=== PATIENT | male | born 1995 | race Caucasian/White ===

== ENCOUNTER 2023-08-21 08:37 | Emergency (ER) | payer SELFPAY ==
--- NOTE | 2023-08-21 08:39 | ECG_ITS ---
[facility] Test Date: 2023-08-21 Pat Name: Ilan Rush Department: Room: Gender: Male [employer]: : 1995 Requested By: Cory Quinones Order Number: [id number] Mannie MD: Collette Delgado M.D. Measurements Intervals Dwight Rate: 78 P: 84 MA: 136 QRS: 69 QRSD: 93 T: 66 QT: 352 QTc: 401 Interpretive Statements SINUS RHYTHM POSSIBLE RIGHT ATRIAL ENLARGEMENT [0.25mV P-WAVE] POSSIBLE LEFT ATRIAL ENLARGEMENT [-0.1mV P-WAVE IN V1/V2] No previous ECG available for comparison Electronically Signed On 08-21-2023 12:56:18 CDT by Collette Delgado M.D. [id number]
--- NOTE | 2023-08-21 08:39 | XR_ITS ---
WS: [id number] EXAMINATION: XR chest 1V portable [id number] REASON FOR EXAM: dyspnea/cough COMPARISON: 02/15/2014 ORDER DATE: 08/21/2023 8:39 AM TECHNIQUE: A single, portable frontal chest x-ray was obtained. X-RAY FINDINGS: The lungs are clear. Pleural spaces are clear. No pleural effusions or pneumothorax. Cardiomediastinal silhouette is normal. No evidence for pulmonary edema. Soft tissue and osseous structures are unremarkable. No tubes or lines are present. IMPRESSION: Unremarkable frontal portable chest x-ray.
[2023-08-21 08:50] VITALS: BP 141/87; PULSE 81; RESP 18; TEMP 36.7; O2SAT 99
[2023-08-21 09:00] LABS: Basophils # 0.1 10^3/uL (0.0-0.1); Basophils % 0.5 %; Eosinophils # 0.2 10^3/uL (0.0-0.8); Eosinophils % 2.5 %; Hematocrit 52.9 % (37-53); Lymphocytes % 10.9 %; Mean Corpuscular HGB Conc 34.4 g/dL (30-55); Mean Corpuscular Hemoglobin 34.7 pg (27-33); Mean Corpuscular Volume 100.8 fl (82-101); Mean Platelet Volume 8.5 fL (7.4-10.4); Monocytes % 10.6 %; Neutrophils # 6.88 10^3/uL (1.8-7.7); Nucleated Red Blood Cells % 0 %; Platelet Count 204 10^3/cmm (157-399); Red Blood Count 5.25 10^6/uL (3.85-5.65); Red Cell Distribution Width 12.3 % (12.1-15.1); White Blood Count 9.18 10^3/uL (3.29-11.43)
--- NOTE | 2023-08-21 09:11 | ED_ITS ---
HPI - Chest Pain General: Chief Complaint: Chest Pain Stated Complaint: side pain and chest pain Time Seen by Provider: 08/21/23 08:38 Source: patient Mode of arrival: ambulatory History of Present Illness: 27-year-old male presents emergency room complaining of left-sided chest pain worsening takes a deep breath. He has had a dry nonproductive cough. A little bit of sinus congestion as well patient is an everyday smoker is no history of any arrhythmias DVTs no swelling in the legs he is not on any blood thinners not had any fever sweats chills. No dysuria urgency or frequency no abdominal pain. MD complaint: chest pain Onset (ago): hour(s) (12) Timing of current episode: episodic Onset: during rest Pain location: substernal Pain radiation: none Quality: sharp Exacerbating factors: inspiration Associated symptoms: Deny abdominal pain, diaphoresis, dyspnea, fever(s), leg edema, nausea, palpitations, sense of impending doom, syncope or vomiting Treatment prior to arrival: none Review of Systems Const: Denies: fever(s) or diaphoresis Card: Denies: palpitations or syncope Resp: Denies: dyspnea GI: Denies: abdominal pain, nausea or vomiting Physical Exam Const: GENERAL APPEARANCE: cooperative and comfortable ORIENTATION/CONSCIOUSNESS: Yes awake, Yes oriented to person, Yes oriented to place and Yes oriented to time HENMT: COMMON NORMALS: normocephalic, atraumatic and hearing grossly normal bilaterally HEAD & SCALP: normocephalic and atraumatic Resp: COMMON NORMALS: normal respiratory effort, No retractions, No use of accessory muscles and clear to auscultation bilaterally AUSCULTATION: clear to auscultation bilaterally Cardio: COMMON NORMALS: regular rate, regular rhythm and No murmurs present (Cardio) RATE: regular rate RHYTHM: regular rhythm GI: COMMON NORMALS: Soft to palpation and No hepatosplenomegaly present AUSCULTATION: Yes normoactive bowel sounds PALPATION: Yes Soft to palpation, No Tenderness to palpation present (GI), No Guarding due to palpation present (GI) and Yes No hepatosplenomegaly present Extremity: COMMON NORMALS: normal to inspection, capillary refill normal, no clubbing, cyanosis or edema, no calf tenderness and no pedal edema Neuro: SENSORIUM/ORIENTATION: Yes oriented to person, Yes oriented to place and Yes oriented to time Skin: COMMON NORMALS: no rashes or lesions noted GENERAL SKIN EXAM: no rashes or lesions noted Course Vital Signs: Vital signs: Vital Signs Temperature 98.1 F 08/21/23 08:50 Pulse Rate 82 08/21/23 10:56 Respiratory Rate 17 08/21/23 10:56 Blood Pressure 128/88 08/21/23 10:56 Pulse Oximetry 97 08/21/23 10:56 Oxygen Delivery Me thod Room Air 08/21/23 10:06 MDM - Chest Pain Medical Decision Making Pleuritic chest pain Labs and imaging unremarkable. No signs of pneumonia clinically patient does not appear to have a COVID infection. Suspect some other viral upper respiratory infection supportive cares follow-up as needed Medical Records I reviewed the patient's medical records. Lab Data I reviewed the patient's lab results. 08/21/23 08:54 08/21/23 08:54 Laboratory Results WBC 9.18 10^3/uL (3.29-11.43) 08/21/23 08:54 RBC 5.25 10^6/uL (3.85-5.65) 08/21/23 08:54 Hgb 18.20 g/dL (11.27-16.99) H 08/21/23 08:54 Hct 52.9 % (37-53) 08/21/23 08:54 MCV 100.8 fl (82-101) 08/21/23 08:54 MCH 34.7 pg (27-33) H 08/21/23 08:54 MCHC 34.4 g/dL (30-55) 08/21/23 08:54 RDW 12.3 % (12.1-15.1) 08/21/23 08:54 Plt Count 204 10^3/cmm (157-399) 08/21/23 08:54 MPV 8.5 fL (7.4-10.4) 08/21/23 08:54 Neut % (Auto) 75.0 % 08/21/23 08:54 Lymph % (Auto) 10.9 % 08/21/23 08:54 Mcdonough % (Auto) 10.6 % 08/21/23 08:54 Eos % (Auto) 2.5 % 08/21/23 08:54 Baso % (Auto) 0.5 % 08/21/23 08:54 Neut # (Auto) 6.88 10^3/uL (1.8-7.7) 08/21/23 08:54 Lymph # (Auto) 1.0 10^3/uL (0.8-4.8) 08/21/23 08:54 Mcdonough # (Auto) 1.0 10^3/uL (0.2-0.9) H 08/21/23 08:54 Eos # (Auto) 0.2 10^3/uL (0.0-0.8) 08/21/23 08:54 Baso # (Auto) 0.1 10^3/uL (0.0-0.1) 08/21/23 08:54 Nucleated RBC % (auto) 0 % 08/21/23 08:54 Nucleated RBCs # 0.0 /100WBC 08/21/23 08:54 Sodium 136 mmol/L (136-145) 08/21/23 08:54 Potassium 4.3 mmol/L (3.5-5.1) 08/21/23 08:54 Chloride 100 mmol/L (98-107) 08/21/23 08:54 Carbon Dioxide 23 mmol/L (22-29) 08/21/23 08:54 Anion Gap 17.3 (5-19) 08/21/23 08:54 BUN 11 mg/dL (6-20) 08/21/23 08:54 Creatinine 0.9 mg/dL (0.7-1.2) 08/21/23 08:54 GFR Calculation 102.0 mL/min (90-130) 08/21/23 08:54 Glucose 112 mg/dL (65-115) 08/21/23 08:54 Calculated Osmolality 282 mOsm/kg (285-295) L 08/21/23 08:54 Calcium 9.9 mg/dL (8.5-10.5) 08/21/23 08:54 Total Bilirubin 0.8 mg/dL (0.15-1.2) 08/21/23 08:54 AST 35 U/L (0-40) 08/21/23 08:54 ALT 27 U/L (0-41) 08/21/23 08:54 Alkaline Phosphatase 121 U/L (40-130) 08/21/23 08:54 Total Protein 8.1 g/dL (6.6-8.7) 08/21/23 08:54 Albumin 4.8 g/dL (3.5-5.2) 08/21/23 08:54 Globulin 3.3 g/dL (1.3-4.6) 08/21/23 08:54 All radiology interpretation(s) finalized by discharge Discharge Plan Discharge Patient Disposition: Home Clinical Impression: Pleuritic chest pain Condition: Stable Prescriptions: New diclofenac sodium 75 mg tablet,delayed release (DR/EC) 75 mg PO Q12H PRN (Reason: pain) Qty: 20 0RF Discharge Orders: Discharge ED (Routine); Ordered 08/21/23 Ordered By: Cory Zarco Discharge Diet: Usual diet Discharge Activity: Increase activity as tolerated Patient Instructions: Pleurisy (ED), Opioid Safety, Pain Management Coding Level of Care Code 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
[2023-08-21 09:12] VITALS: BP 143/96; RESP 19; O2SAT 99
[2023-08-21 09:18] LABS: Alanine Aminotransferase 27 U/L (0-41); Albumin Level 4.8 g/dL (3.5-5.2); Alkaline Phosphatase 121 U/L (40-130); Anion Gap 17.3 (5-19); Aspartate Amino Transferase 35 U/L (0-40); Blood Urea Nitrogen 11 mg/dL (6-20); Calcium 9.9 mg/dL (8.5-10.5); Carbon Dioxide 23 mmol/L (22-29); Chloride 100 mmol/L (98-107); Globulin 3.3 g/dL (1.3-4.6); Glucose 112 mg/dL (65-115); Osmolality Calculated 282 mOsm/kg (285-295); Potassium 4.3 mmol/L (3.5-5.1); Sodium 136 mmol/L (136-145); Total Bilirubin 0.8 mg/dL (0.15-1.2); Total Protein 8.1 g/dL (6.6-8.7)
--- NOTE | 2023-08-21 09:20 | PC.PHAR ---
pt states he take no rx or otc medications-no meds show up on ext med history
[2023-08-21] MEDS: ketorolac 30 mg/mL INJ IVP (09:26)
[2023-08-21 10:06] VITALS: BP 142/85; PULSE 75; RESP 20; O2SAT 97
[2023-08-21 10:56] VITALS: BP 128/88; PULSE 82; RESP 17; O2SAT 97
== END 2023-08-21 10:57 | disposition home or self-care (01) ==
PROVIDERS: Emergency Provider Family Medicine
DX: R09.1 Pleurisy (principal)
CPT/HCPCS: 36415; 71045; 80053; 85025; 93005; 96374; 99285; J1885

== ENCOUNTER → 2024-03-06 18:55 | Outpatient (BNVA) | payer SELFPAY | PROVIDERS: Visit Provider Physician Assistant | DX: R09.81 Nasal congestion (principal) | CPT/HCPCS: 87400 ==

== ENCOUNTER 2024-09-29 07:50 | Emergency (ER) | payer SELFPAY ==
--- NOTE | 2024-09-29 07:52 | ED_ITS ---
HPI - Extremity Injury (Lower) General: Chief Complaint: Extremity Injury, Lower Stated Complaint: L foot injury Time Seen by Provider: 09/29/24 07:52 Source: patient Mode of arrival: ambulatory Limitations: no limitations History of Present Illness: Patient is a 28-year-old male presents to ED today with a complaint of a left foot injury that he sustained after falling from his roof approximately 9 days ago. He does not remember twisting the extremity and feels like he landed fairly flat-footed . He has had pain since the fall. He is ambulatory here without assistance but with a limp. He has noticed bruising to the medial aspect of his left foot. He has no other injuries or complaints at this time. complaint: foot injury Onset (ago): day(s) Injury: Left: foot Place: home Severity: moderate Relieving factors: immobilization Exacerbating factors: weight bearing, movement and palpation Context: fall Associated symptoms: Reports no associated symptoms Other symptoms: none Related Data Home Medications Medication Instructions Recorded Confirmed No Known Home Medications 09/29/24 09/29/24 Allergies Allergy/AdvReac Type Severity Reaction Status Date / Time No Known Allergies Allergy Verified 03/06/24 18:26 Review of Systems Musc: Reports: extremity pain (L foot); Denies: neck pain, back pain, extremity swelling, joint pain or joint swelling Neuro: Denies: numbness in extremities, weakness in extremities, sensory changes or difficulty walking Physical Exam Const: COMMON NORMALS: no acute distress, average body habitus, no limitations, alert and well nourished Back/Pelvis: COMMON NORMALS: thoracic and lumbar spine normal to inspection Extremity: COMMON NORMALS: capillary refill normal, no joint enlargement, no clubbing, cyanosis or edema, no calf tenderness and no pedal edema GENERAL: Yes normal exam except as noted LEFT LOWER EXTREMITY: Yes ankle joint (normal ankle joint examination) Left ankle: Yes neurovascular exam (normal) and Yes foot & digits Left foot and digits: Yes inspection (ecchymosis medial L foot), Yes palpation (TTP proximal/medial L foot; no obvious bony abnormalities noted) and Yes neurovascular exam (normal) Neuro: SENSORIUM/ORIENTATION: Yes alert Course Vital Signs: Vital signs: Vital Signs Temperature 98.1 F 09/29/24 08:02 Pulse Rate 67 09/29/24 08:02 Respiratory Rate 18 09/29/24 08:02 Blood Pressure 135/66 09/29/24 08:02 Pulse Oximetry 100 09/29/24 08:02 Oxygen Delivery Me thod Room Air 09/29/24 08:02 MDM - Extremity Injury (Lower) Medical Decision Making XR unremarkable. Radiology did comment on a possible equivocal nondisplaced fracture at the base of his fifth proximal phalanx. Patient has absolutely no tenderness here. He was offered crutches but declines. Recommend continuing conservative therapy. Recommend following up with primary care in 1 to 2 weeks if symptoms are not improving. Lab Data Radiology Impressions Foot X-Ray 09/29/24 08:00 IMPRESSION: Mild soft tissue swelling. Equivocal nondisplaced fracture deformity at the base of the 5th proximal phalanx visualized only on the AP projection All radiology interpretation(s) finalized by discharge Discharge Plan Discharge Patient Disposition: Home Clinical Impression: Contusion of foot, left Qualifiers: Encounter type: initial encounter Qualified Code(s): S90.32XA - Contusion of left foot, initial encounter Condition: Stable Prescriptions: No Action No Known Home Medications Discharge Orders: Discharge ED (Routine); Ordered 09/29/24 Ordered By: Gilda Mullen Activity Restrictions/Additional Instructions: As we discussed, you need to ice and elevate the extremity as much as possible. If you continue to have pain over the next 1 to 2 weeks, you need to follow-up with your primary care provider. 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
[2024-09-29 07:59] VITALS: BP 135/66; PULSE 67; RESP 18; TEMP 36.7; O2SAT 100; BMI 22.3
--- NOTE | 2024-09-29 08:00 | XRR_ITS ---
PROCEDURE INFORMATION: Exam: XR Left Foot Exam date and time: 09/29/2024 8:19 AM Age: 28 years old Clinical indication: Pain; Foot; Left; Additional info: Injury TECHNIQUE: Imaging protocol: Radiologic exam of the left foot. Views: 3 or more views. COMPARISON: No relevant prior studies available. FINDINGS: Bones/joints: Equivocal nondisplaced fracture deformity at the base of the 5th proximal phalanx visualized only on the AP projection Soft tissues: Mild soft tissue swelling over the 4th and 5th metatarsal heads XR/XR foot LT min 3V* [id number] IMPRESSION: Mild soft tissue swelling. Equivocal nondisplaced fracture deformity at the base of the 5th proximal phalanx visualized only on the AP projection
[2024-09-29 08:02] VITALS: BP 135/66; PULSE 67; RESP 18; TEMP 36.7; O2SAT 100
[2024-09-29 09:45] VITALS: BP 127/76; PULSE 82; RESP 16; O2SAT 97
== END 2024-09-29 09:47 | disposition home or self-care (01) ==
PROVIDERS: Emergency Provider Physician Assistant
DX: S90.32XA Contusion of left foot, initial encounter (principal); W13.2XXA Fall from, out of or through roof, initial encounter
CPT/HCPCS: 73630; 99283